=== PATIENT | female | born 1990 | race Caucasian/White ===

== ENCOUNTER 2020-01-03 08:07 | Day surgery (SDC) | payer MEDICAID ==
[2020-01-01 09:46] LABS: BASOPHILS 0.1 % (0-2); EOSINOPHILS 1.3 % (0-7); HEMATOCRIT 42.1 % (36.0-48.0); HEMOGLOBIN 14.3 g/dL (12-16); IMMATURE GRANULOCYTES 0.1 % (0-5); LYMPHOCYTES 27.3 % (15-50); MCH 28.9 pg (26.0-34.0); MCV 85.1 fL (80.0-100.0); MEAN PLATELET VOLUME 9.3 fL (7.4-10.4); MONOCYTES 8.6 % (2-11); NEUTROPHILS 62.6 % (40-80); PLATELET COUNT 344 10x3/uL (130-400); RBC 4.95 10x6/uL (4.00-5.40); RDW 12.9 % (11.5-14.5)
[~2020-01-03] VITALS: Ht 160 cm; Wt 79.4 kg
--- NOTE | ~2020-01-03 | OP ---
PATIENT NAME: ROBBI RYDER MEDICAL RECORD: [id number] :91 LOCATION:[facility] ADMISSION DATE: SURGEON: DONTE NASCIMENTO MD DATE OF OPERATION: 01/03/2020 PREOPERATIVE DIAGNOSES: 1. Pelvic pain. 2. Right ovarian cyst. POSTOPERATIVE DIAGNOSES: 1. Pelvic pain. 2. Right ovarian cyst. 3. Endometriosis and adhesive disease. PROCEDURE: Operative laparoscopy, lysis of adhesions and ovarian cystotomy. SURGEON: Donte Nascimento MD ANESTHESIA: General endotracheal. INTRAVENOUS FLUIDS: Per anesthesia record. ESTIMATED BLOOD LOSS: Minimal. COMPLICATIONS: None apparent. SPECIMENS: None. FINDINGS: 1. Extensive adhesive disease involving the omentum to the anterior abdominal wall. 2. Fusion of the bilateral ovaries to the ovarian fossa. 3. Obliteration of the caudal posterior cul-de-sac with adherence of the rectum to the uterus. 4. Multiple areas consistent with endometriosis. PROCEDURE IN DETAIL: The patient was taken to the operating room where general anesthesia was achieved without difficulty. The patient was then prepped and draped in normal sterile fashion in the dorsal lithotomy position in the [facility]. At this point, the patient was prepped and draped and a Breaux catheter was placed. A sponge stick was placed in the vagina for uterine elevation. On this point, a 5-mm incision was made in the inferior aspect of the umbilicus. A 5-mm bladeless trocar was used then to enter the intraperitoneal space under direct visualization. Following removal of introducer, the scope was replaced and intraperitoneal placement was confirmed. The patient was then insufflated and opening pressure was found to be less than 10 mmHg. Following insufflation, an extensive adhesive disease was noted with the omentum stuck to the anterior abdominal wall. At this point, a second 5-mm incision was made in the left lower quadrant, a second 5-mm port was placed under direct visualization of the laparoscope. The Thunderbeat electrocautery ultrasonic device was then used to carefully dissect the omental adhesions in the anterior abdominal wall with good hemostasis noted. Once the omental adhesions were removed, several bowel adhesions were then taken down with the Thunderbeat on the right pelvic sidewall. At this point, the uterus was found to be displaced in a posterior direction. Attempts at elevating the uterus OPERATIVE REPORT [id number] RYDER,ROBBI showed significant scar tissue in the posterior cul-de-sac between the caudal rectum and the cervix. The ovaries were identified and the ovarian fossa were found to be densely fused due to likely endometriosis. During manipulation of the uterus, the cyst in question ruptured spontaneously. The canine service teacher aspirator was used to remove all cyst fluid. Careful examination was performed and it was felt that these adhesions would likely need to be addressed via laparotomy. Decision was made to stop with lysis of adhesions at that point. The patient was then partially desufflated and good hemostasis was noted from all surgical sites. The scope was then removed and the patient was fully desufflated and the 2 ports were removed without any difficulty. Skin was repaired with 3-0 Vicryl in an interrupted fashion. TRANSINT:[id number] Voice Confirmation ID: [id number] DOCUMENT ID: [id number] DONTE NASCIMENTO MD CC: [id number] DICTATION DATE: 01/10/20 1023 [facility] RECEPTIONIST: 01/10/20 1134 [facility] 01/03/20 [id number] [place] [address]
[~2020-01-03 08:07] MED LIST: AMBIEN10 MG PO; DEXEDRINE15 MG; EFFEXOR75 MG PO; FLAGYL500 MG PO; XANAX2 MG PO
[2020-01-03 09:33] VITALS: BP 94/55; Ht 160 cm; Wt 79.4 kg
[2020-01-03 09:51] LABS: HCG URINE NEGATIVE (NEGATIVE)
--- NOTE | 2020-01-03 14:32 | NUR ---
1245 IV REMOVED AND PRESSURE HELD. 1240 MEDICATED FOR PAIN. 1220 VOIDED X1, INSTRUCTIONS GIVEN
== END 2020-01-03 13:30 | disposition home or self-care (01) ==
LOC: D.PAN 08:07 → D.OPS 01-10 07:30
PROVIDERS: ATTEND Obstetrics & Gynecology
DX: R10.2 Pelvic and perineal pain (principal); N83.201 Unspecified ovarian cyst, right side; N80.9 Endometriosis, unspecified

== ENCOUNTER 2020-07-10 05:09 | Day surgery (SDC) | payer OTHER ==
[2020-07-07 10:39] LABS: BASOPHILS 0.1 % (0-2); EOSINOPHILS 1.4 % (0-7); HEMATOCRIT 41.9 % (36.0-48.0); HEMOGLOBIN 13.7 g/dL (12-16); IMMATURE GRANULOCYTES 0.1 % (0-5); LYMPHOCYTE ABS# 1.66 10x3/uL (1.18-3.74); LYMPHOCYTES 23.2 % (15-50); MCHC 32.7 g/dL (31.0-37.0); MCV 85.7 fL (80.0-100.0); MEAN PLATELET VOLUME 9.7 fL (7.4-10.4); MONOCYTES 7.1 % (2-11); NEUTROPHIL ABS# 4.85 10x3/uL (1.56-6.13); NEUTROPHILS 68.1 % (40-80); PLATELET COUNT 312 10x3/uL (130-400); RBC 4.89 10x6/uL (4.00-5.40); RDW 13.4 % (11.5-14.5); WBC 7.1 10x3/uL (4.8-10.8)
[~2020-07-10] VITALS: Ht 160 cm; Wt 83.0 kg
[~2020-07-10 05:09] MED LIST changes: +ADDERALL 30 MG30 MG PO; +HYDROCODON-ACE1 EA10 PO; +IBUPROFEN600 MG PO
[2020-07-10 05:49] VITALS: BP 121/72; BMI 32.4
[2020-07-10 06:01] VITALS: Ht 160 cm; Wt 83.0 kg
[2020-07-10 06:07] LABS: HCG URINE NEGATIVE (NEGATIVE)
--- NOTE | 2020-07-10 14:10 | NUR ---
IV D/C'D WITH CANNULA INTACT, PRESSURE HELD AND DRSG PLACED. DISCHARGE INSTRUCTIONS GIVEN TO PT AND AND BOTH VERBALIZED AN UNDERSTANDING. RATES PAIN 4-5/10 NOW AND WANTS TO GO HOME. ABD SOFT AND TENDER AND PT WITHOUT C/O
--- NOTE | 2020-07-20 05:27 | OP ---
PATIENT NAME: ROBBI RYDER MEDICAL RECORD: [id number] :91 [facility] DATE: SURGEON: NOELLE NASCIMENTO MD DATE OF OPERATION: 07/10/2020 PREOPERATIVE DIAGNOSES: 1. Menorrhagia. 2. The patient desires permanent sterility. POSTOPERATIVE DIAGNOSES: Extensive adhesive disease involving the omentum, anterior abdominal wall, fallopian tubes adhesed to the ovarian fossa. PROCEDURE: Laparoscopic lysis of adhesions, tubal ligation via bipolar cautery, hysteroscopy and NovaSure endometrial ablation. SURGEON: Noelle Nascimento ANESTHESIA: General endotracheal. INTRAVENOUS FLUIDS: Per anesthesia record. HYSTEROSCOPIC FLUID LOSS: Less than 50 mL of 0.9 normal saline. ESTIMATED BLOOD LOSS: Minimal. FINDINGS: 1. Extensive adhesive disease involving the omentum and anterior abdominal wall. 2. Densely adherent adhesions of the fallopian tubes to the ovarian fossa. 3. Normal appearing ovaries. 4. Uterus with likely adenomyosis. 5. Grossly normal-appearing external genitalia. 6. Grossly normal-appearing proliferative endometrium. COMPLICATIONS: None apparent. PROCEDURE IN DETAIL: The patient was taken to the operating room where general anesthesia was achieved without any difficulty. The patient was then prepped and draped in normal sterile fashion in the dorsal lithotomy position in the [facility]. A Breaux catheter was placed into the bladder with return of about 100 mL of clear yellow urine. Initially, a sponge stick was placed into the vagina for uterine elevation. Attention was then turned to the abdomen where a 5-mm incision was made in the skin and the intraperitoneal space was entered with a 5-mm bladeless trocar. The introducer was removed and intraperitoneal placement was confirmed visually. The patient was insufflated. Dense omental adhesions were immediately noted from previous Pfannenstiel incision. Attention was then turned to the left lower quadrant where a second 5-mm incision was made and a second 5-mm port was placed under direct visualization of the laparoscope. The Thunderbeat cell feed department supervisor device was then used to excise the omentum immediately adjacent to the anterior abdominal wall. Once this was performed, a third 5-mm port was placed in the right lower quadrant using the same technique. Dense adhesive disease was noted in the bilateral adnexa. The left fallopian tube was found to be densely adherent to the uterine vessels that was mobilized as much as possible and the left fimbriated end was completely desiccated using the bipolar cautery. Attention OPERATIVE REPORT [id number] ROBBI RYDER was then turned to the right fallopian tube, which a mid-section area was free of adhesion and approximately 3-4 cm area of the fallopian tube was completely desiccated using the bipolar cautery. Good hemostasis was noted from all surgical sites. The patient was desufflated and the trocars were removed. The skin incisions were repaired with 3-0 Vicryl in an interrupted fashion. Attention was then turned to the vagina where the sponge stick was removed. Graves speculum was placed into the vagina and the cervix was grasped by the anterior lip with a single-tooth tenaculum. The patient was dilated to approximately 5-mm, at which point a hysteroscope was performed for survey of the endometrial canal. The NovaSure device was then calibrated and measured and placed without difficulty after dilating the cervix to approximately 9-mm. The vacuum pre-checks were found to be satisfactory times 2 and ablative cycle was performed per the machine. Following removal of the endometrial device using the bow and arrow method, the tenaculum was removed. The patient tolerated the procedure well and was transported to postanesthesia recovery stable without incident. TRANSINT:[id number] Voice Confirmation ID: [id number] DOCUMENT ID: [id number] NOELLE NASCIMENTO MD at 0527 CC: [id number] DICTATION DATE: 07/17/20 1432 CHAIN TENDER: 07/17/20 1512 [facility] 07/10/20 [facility] [address] [place] [address]
== END 2020-07-10 14:10 | disposition home or self-care (01) ==
LOC: D.OPS 05:09
PROVIDERS: ATTEND Obstetrics & Gynecology
DX: N92.0 Excessive and frequent menstruation with regular cycle (principal); Z30.2 Encounter for sterilization

== ENCOUNTER 2020-07-23 10:27 | Observation (INO) | payer OTHER ==
[~2020-07-23] VITALS: Ht 157.5 cm; Wt 86.8 kg
[2020-07-23 11:04] LABS: CALC OSMOLALITY 271 mosm/kg (275-300); CALCIUM 8.6 mg/dL (8.5-10.1); CARBON DIOXIDE 24.4 mmol/L (21.0-32.0); CHLORIDE - SERUM 105 mmol/L (98-107); CREATININE - SERUM 0.8 mg/dL (0.6-1.3); GLUCOSE 103 mg/dL (74-106); POTASSIUM - SERUM 4.1 mmol/L (3.5-5.1); SODIUM 137 mmol/L (136-145); UREA NITROGEN 8 mg/dL (7-18); eGFR NON AFRICAN AMERICAN 90 mL/min (90-120)
[2020-07-23 11:10] LABS: ALKALINE PHOSPHATASE 93 U/L (30-120); ALT (SGPT) 55 U/L (10-68); BILIRUBIN - TOTAL 0.46 mg/dL (0.2-1.3); PROTEIN - SERUM 7.6 g/dL (6.4-8.2)
[2020-07-23 11:22] LABS: BASOPHILS 0.1 % (0-2); EOSINOPHILS 0.5 % (0-7); HEMATOCRIT 37.3 % (36.0-48.0); HEMOGLOBIN 12.5 g/dL (12-16); IMMATURE GRANULOCYTES 0.4 % (0-5); LYMPHOCYTE ABS# 2.42 10x3/uL (1.18-3.74); LYMPHOCYTES 13.4 % (15-50); MCH 28.3 pg (26.0-34.0); MCHC 33.5 g/dL (31.0-37.0); MCV 84.4 fL (80.0-100.0); MEAN PLATELET VOLUME 9.8 fL (7.4-10.4); MONOCYTES 5.9 % (2-11); NEUTROPHIL ABS# 14.43 10x3/uL (1.56-6.13); NEUTROPHILS 79.7 % (40-80); PLATELET COUNT 352 10x3/uL (130-400); RBC 4.42 10x6/uL (4.00-5.40); WBC 18.1 10x3/uL (4.8-10.8)
[2020-07-23 11:31] LABS: HCG URINE NEGATIVE (NEGATIVE)
--- NOTE | 2020-07-23 11:48 | NUR ---
C/O ABD PAIN. MORPHINE 4MG AND ZOFRAN 4MG ADMINISTERED VIA 22G IV LEFT HAND. PT TOLERATED WELL.
[2020-07-23 12:18] LABS: BILIRUBIN NEGATIVE (NEGATIVE); KETONE NEGATIVE (NEGATIVE); NITRITE NEGATIVE (NEGATIVE)
[2020-07-23 12:19] LABS: WHITE CELLS - URINE 25-50 HPF (0-4)
[2020-07-23 12:20] LABS: BACTERIA MODERATE HPF (NONE SEEN); SQUAMOUS EPITHELIAL 0-5 HPF (0-4)
[2020-07-23] MEDS ORDERED: HYDROCODON-ACE1 EAC7 PO (16:45)
[2020-07-23 16:46] VITALS: Ht 157.5 cm; Wt 86.8 kg
--- NOTE | 2020-07-23 17:00 | NUR ---
DR. STANFORD IN ROOM SPEAKING WITH PT REGARDING PLAN OF CARE REGARDING CURRENT HOSPITAL VISIT. CURRENT TEMP REPORTED TO MD. STERILE SPECULUM EXAM DONE BY DR. STANFORD WITH FOUL ODOR TO LIGHT BROWNISH DISCHARGE WHICH IS NOTED ON SPECULUM. PERICARE DONE WITH WARM WET WASHCLOTHS. PERIPADS/PANTIES ON. COOL WASHCLOTHS PROVIDED FORHEAD/FACE. VERBAL ORDER RECEIVED FOR PT TO HAVE REGULAR DIET, MD WILL CHANGE ABX ORDERS. SR UP X 2, CALL LIGHT AND PHONE WITHIN REACH.
[2020-07-23 19:24] VITALS: BP 98/54
--- NOTE | 2020-07-23 19:24 | NUR ---
SHIFT ASSESSMENT COMPLETED, SEE FLOWSHEET.
--- NOTE | 2020-07-23 20:58 | NUR ---
PT UP TO VOID WITHOUT DIFFICULTY, STATES THAT SHE NOTICED A DROP OF PUS WHEN SHE WIPED. NO NEEDS IDENTIFIED. WILL CONTINUE TO MONITOR.
--- NOTE | 2020-07-23 22:36 | NUR ---
PATIENT SLEEPING WITH EVEN RESPIRATIONS, NO DISTRESS NOTED. WILL CONTINUE TO MONITOR.
--- NOTE | 2020-07-24 00:10 | NUR ---
PATIENT UP TO BATHROOM, VOIDED WITHOUT DIFFICULTY. PT REQUESTING PAIN MEDICATION.
--- NOTE | 2020-07-24 00:13 | NUR ---
ANTIBIOTICS STARTED VIA ALARIS INFUSION PUMP PER MD ORDERS. SEE EMAR.
--- NOTE | 2020-07-24 00:15 | NUR ---
ORAL ANTIBIOTICS AND IV MORPHINE ADMINISTERED AT THIS TIME, SEE EMAR.
--- NOTE | 2020-07-24 00:43 | NUR ---
ANTIBIOTICS COMPLETED AT THIS TIME, NO REACTION NOTED. IV FLUSHED AND SALINE LOCKED.
--- NOTE | 2020-07-24 01:40 | NUR ---
PT RESTING QUIETLY WITH EYES OPEN, DENIES NEEDS AT THIS TIME. WILL CONTINUE TO MONITOR.
--- NOTE | 2020-07-24 03:30 | NUR ---
PATIENT RESTING QUIETLY WITH EYES CLOSED. NO DISTRESS NOTED. WILL CONTINUE TO MONITOR
--- NOTE | 2020-07-24 05:59 | NUR ---
PATIENTS TO DESK TO ASK FOR PADS AND A COKE.
--- NOTE | 2020-07-24 06:09 | NUR ---
ANTIBIOTICS INFUSING VIA ALARIS PUMP PER MD ORDERS. COKE PROVIDED PER PT REQUEST. NO FURTHER NEEDS IDENTIFIED. WILL CONTINUE TO MONITOR.
[2020-07-24 07:15] VITALS: BP 96/54
--- NOTE | 2020-07-24 07:15 | NUR ---
PT REPORTS WHEN SHE GOES TO TO BATHROOM TO PEE, IT DOESN'T BURN OR STING, AND IT DOESN'T HURT, BUT SHE CAN FEEL THE PAIN IN HER ABDOMEN, WHICH IS LOWER AND MORE TENDER WHEN PRESSING ON ABDOMEN. DR. MCCORMACK SERVED TO PT, AND MT. TANNER AND COCA COLA ORDERED FROM DIETARY. SRUP X2, CALL LIGHT AND PHONE WITHIN REACH.
--- NOTE | 2020-07-24 07:30 | NUR ---
DR. FINNEY AT [facility], AND REVIEWS LAB WORK AND CT SCANS.
--- NOTE | 2020-07-24 09:15 | NUR ---
PT WANTS TO GET UP TO THE SHOWER, PERSONAL CARE ITEMS PROVIDED FOR SHOWER, IN ROOM HELPING PT. PT DENIES ALL NEEDS AT THIS TIME.
--- NOTE | 2020-07-24 09:20 | NUR ---
LAB HERE TO DRAW BLOODWORK, PT IS IN SHOWER, LAB WILL RETURN.
[2020-07-24 09:52] LABS: BASOPHILS 0.1 % (0-2); EOSINOPHILS 0.4 % (0-7); HEMATOCRIT 36.8 % (36.0-48.0); HEMOGLOBIN 12.3 g/dL (12-16); IMMATURE GRANULOCYTES 0.3 % (0-5); LYMPHOCYTE ABS# 1.75 10x3/uL (1.18-3.74); LYMPHOCYTES 10.4 % (15-50); MCH 28.2 pg (26.0-34.0); MCHC 33.4 g/dL (31.0-37.0); MCV 84.4 fL (80.0-100.0); MEAN PLATELET VOLUME 9.5 fL (7.4-10.4); MONOCYTES 8.6 % (2-11); NEUTROPHIL ABS# 13.55 10x3/uL (1.56-6.13); NEUTROPHILS 80.2 % (40-80); PLATELET COUNT 334 10x3/uL (130-400); RBC 4.36 10x6/uL (4.00-5.40); RDW 12.9 % (11.5-14.5); WBC 16.9 10x3/uL (4.8-10.8)
--- NOTE | 2020-07-24 11:45 | NUR ---
IV TO LEFT HAND NOTED TO BE SLIGHTLY SWOLLEN AND FINGERS PUFFY, PT REPORTS TENDERNESS TO IV SITE. WILL RESITE IV. IV RESITED WITH 20 G CATH X 1 ATTEMPT TO RIGHT WRIST, WITH NS INFUSING AT SLOW RATE TO KVO, THEN CEFTOXITIN 2 GRAMS INFUSING IVPB. NO REDNESS OR SWELLING NOTED TO IV SITE, NO C/O PAIN. DIETARY SERVES LUNCH TRAY, SERVED TO PT. PT DENIES ALL NEEDS AT THIS TIME. SRUP X2, CALL LIGHT AND PHONE WITHIN REACH. SIG OTHER AT BEDSIDE.
--- NOTE | 2020-07-24 11:54 | NUR ---
SEE EMAR FOR ALL MEDS ADM BY THIS RN. MOTRIN 600 MG ONE PO AND PERCOCET 10 MG ONE PO GIVEN FOR C/O HEADACHE AND ABD PAIN AND TENDERNESS. PT REPORTS SHE DRINKS 2-3 REDBULLS DAILY AND HASN'T HAD ONE IN A COUPLE OF DAYS. PT DENIES ALL OTHER NEEDS AT THIS TIME. SRUP X2, CALL LIGHT AND PHONE WITHIN REACH.
[2020-07-24 17:45] VITALS: BP 87/50
--- NOTE | 2020-07-24 17:45 | NUR ---
PT REPORTS FEELING MUCH BETTER, PT IS AMBULATORY IN ROOM, BR PER SELF, VOIDING WITHOUT C/O PAIN OR BURNING, PT DOES REPORT SMALL AMOUNT OF CLUMPY LIGHT BROWNISH VAG DISCHARGE UPON WIPING AFTER VOIDING. PT HAS FOOD THAT HAS BROUGHT TO HER FROM OUTSIDE OF HOSPITAL. PT DENIES ALL OTHER NEEDS AT THIS TIME. SRUP X2, CALL LIGHT AND PHONE WITHIN REACH.
--- NOTE | 2020-07-24 18:50 | NUR ---
PATIENT AMBULATING IN HALLWAY WITH STEADY GAIT WITH SIGNIFICANT OTHER.
--- NOTE | 2020-07-24 19:59 | NUR ---
LAB AT BEDSIDE
[2020-07-24 20:18] LABS: BASOPHILS 0.2 % (0-2); EOSINOPHILS 1.1 % (0-7); HEMATOCRIT 36.3 % (36.0-48.0); HEMOGLOBIN 12.2 g/dL (12-16); IMMATURE GRANULOCYTES 0.2 % (0-5); LYMPHOCYTE ABS# 1.86 10x3/uL (1.18-3.74); LYMPHOCYTES 14.1 % (15-50); MCH 28.6 pg (26.0-34.0); MCHC 33.6 g/dL (31.0-37.0); MCV 85.2 fL (80.0-100.0); MEAN PLATELET VOLUME 9.8 fL (7.4-10.4); MONOCYTES 6.5 % (2-11); NEUTROPHIL ABS# 10.31 10x3/uL (1.56-6.13); NEUTROPHILS 77.9 % (40-80); PLATELET COUNT 333 10x3/uL (130-400); RBC 4.26 10x6/uL (4.00-5.40); WBC 13.2 10x3/uL (4.8-10.8)
--- NOTE | 2020-07-24 20:57 | NUR ---
PATIENT SITTING UP IN BED WATCHING TV. NO NEEDS IDENTIFIED. WILL CONTINUE TO MONITOR
--- NOTE | 2020-07-24 21:06 | NUR ---
PT AMBULATING IN HALLWAY WITH SIGNIFICANT OTHER
[2020-07-24 21:48] VITALS: BP 98/50
--- NOTE | 2020-07-24 21:48 | NUR ---
SHIFT ASSESSMENT COMPLETED, SEE FLOWSHEET
--- NOTE | 2020-07-24 23:42 | NUR ---
PATIENT SLEEPING, EASILY AROUSED TO VERBAL. ANTIBIOTICS ADMINISTERED, SEE EMAR. PT DENIES ANY NEEDS AT THIS TIME. WILL CONTINUE TO MONITOR.
--- NOTE | 2020-07-25 00:15 | NUR ---
ANTIBIOTIC INFUSION COMPLETED,NO REACTION NOTED, IV SALINE LOCKED AT THIS TIME.
--- NOTE | 2020-07-25 03:40 | NUR ---
PATIENT LYING QUIETLY IN BED WITH EYES CLOSED. NO DISTRESS NOTED. RESPIRATIONS EVEN AND NON LABORED.
--- NOTE | 2020-07-25 05:53 | NUR ---
ANTIBIOTICS INFUSING VIA ALARIS PUMP PER MD ORDERS, SEE EMAR
--- NOTE | 2020-07-25 06:30 | NUR ---
ANTIBIOTICS COMPLETED, IV SALINE LOCKED.
[2020-07-25 07:27] VITALS: BP 109/61
--- NOTE | 2020-07-25 07:27 | NUR ---
PT SITTING UP IN BED. VSS. AAO X 3. HRRR WITHOUT AUDIBLE MURMUR. BBS CLEAR. BS X 4. ABDOMEN SOFT/NON-DISTENDED. PT STATES VAGINAL DISCHARGE BROWN IN COLOR. STATES AMT IS LESS THAN YESTERDAY. NEG HOMANS' SIGN. PPP. NO EDEMA NOTED TO BLE. SL SITE CLEAR. PT C/O ABDOMINAL CRAMPING AND H/A OF "6" ON 0-10 PAIN SCALE. PERCOCET AND MOTRIN GIVEN ORDERED. PT INSTRUCTED ON MEDS. VERBALIZES UNDERSTANDING. PT PROVIDED APPLE JUICE AT PT REQUEST. SR UP X 2. CALL LIGHT IN REACH.
--- NOTE | 2020-07-25 09:22 | NUR ---
DR FINNEY VISITS WITH PT.
[2020-07-25] MEDS ORDERED: MONODOX100 MG PO (09:30)
[2020-07-25] MEDS ORDERED: AUGMENTIN 875-11 TAB PO (09:31)
--- NOTE | 2020-07-25 09:50 | NUR ---
PT GIVEN DISCHARGE INSTRUCTIONS. VERBALIZES UNDERSTANDING OF ALL INSTRUCTIONS. COPIES GIVEN TO PT. PT HAS RX FOR PERCOCET THAT DR FINNEY GAVE PT YESTERDAY. PT STATES TOOK TO PHARMACY ALREADY. PT ALSO INSTRUCTED THAT DOXYCYLINE AND AUGMENTIN ESCRIBED PER DR FINNEY TO [facility] [address]. PT VERBALIZES UNDERSTANDING. SL DC'D WITH [place]HELON INTACT. PRESSURE BANDAGE TO SITE. PT DISCHARGED IN STABLE CONDITION VIA AMBULATORY (PER PT REQUEST) WITH SO OFF UNIT.
== END 2020-07-25 09:50 | disposition home or self-care (01) ==
LOC: D.ER 10:27 → D.LD 13:31 → OBSVTIME 13:31 → D.LD 07-25 09:50
PROVIDERS: Obstetrics & Gynecology; Student in an Organized Health Care Education/Training Program; ADMIT Student in an Organized Health Care Education/Training Program; ATTEND Student in an Organized Health Care Education/Training Program
DX: N39.0 Urinary tract infection, site not specified (principal); R10.9 Unspecified abdominal pain